=== PATIENT | male | born 1985 | race Caucasian/White ===

== ENCOUNTER 2021-09-13 12:26 | Emergency (ER) | payer MEDICAID, SELFPAY ==
[2021-09-13 12:28] VITALS: BP 106/85; PULSE 91; RESP 16; TEMP 36.7; O2SAT 100; BMI 32.4
--- NOTE | 2021-09-13 12:49 | CT_ITS ---
STUDY: CT CERVICAL SPINE WITHOUT CONTRAST REASON FOR EXAM: Male, 36 years old. Injury RADIATION DOSAGE (If Supplied By Facility): CTDIvol = ( 26.29 ) mGy, DLP = ( 573.70 ) mGycm TECHNIQUE: High resolution transaxial imaging was performed without contrast material. Sagittal and coronal images were reconstructed. Individualized dose optimization techniques were used for this CT. COMPARISON: None FINDINGS: Normal craniovertebral junction. Normal anterior atlantoaxial articulation. Normal odontoid process. There is straightening of the normal cervical lordosis. Normal vertebral bodies and posterior osseous elements. C2-3: Normal endplates. Normal disc height and morphology. Normal central canal and intervertebral neuroforamina. C3-4: Normal endplates. Normal disc height and morphology. Normal central canal and intervertebral neuroforamina. C4-5: Normal endplates. Normal disc height and morphology. Normal central canal and intervertebral neuroforamina. C5-6: There is a moderate degree of disc space narrowing at the C5-C6 level with spondylosis. C6-7: Moderate degree of disc space narrowing at the C6-C7 level with a posterior spondylosis. C7-T1: Normal endplates. Normal disc height and morphology. Normal central canal and intervertebral neuroforamina. Normal visualized soft tissue structures. CT/Spine Cervical without Contras IMPRESSION: Multilevel degenerative changes, as described above. Electronically Signed: Chandler Monique MD at 13:25 EDT , Service support ,
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
[2021-09-13] MEDS: Diphth,Pertuss(Acell),Tet Vac 0.5 ML Vial IM (13:28)
[2021-09-13 13:53] VITALS: BP 132/81; PULSE 76; RESP 12
== END 2021-09-13 13:54 | disposition home or self-care (01) ==
LOC: ED 13:22
PROVIDERS: Emergency Provider Emergency Medicine
DX: S01.111A Laceration without foreign body of right eyelid and periocular area, initial encounter (principal); F17.210 Nicotine dependence, cigarettes, uncomplicated; V89.2XXA Person injured in unspecified motor-vehicle accident, traffic, initial encounter; Y92.410 Unspecified street and highway as the place of occurrence of the external cause
CPT/HCPCS: 12011; 70450; 70486; 72125; 90471; 90715; 99285

== ENCOUNTER 2022-07-13 17:28 | Emergency (ER) | payer MEDICAID, SELFPAY ==
[2022-07-13 17:29] VITALS: BP 130/79; PULSE 103; RESP 15; TEMP 35.6; O2SAT 98; BMI 33.6
--- NOTE | 2022-07-13 17:52 | EDS_ITS ---
HPI History of Present Illness Chief Complaint: Lower Extremity Injury Detail of Chief Complaint: Bleeding varicose vein Informant: patient Narrative Narrative: Patient presents with bleeding from a varicosity on the inside of his right ank le. He states he was getting ready for work and putting his socks on. He scratched his ankle and a varicose vein started bleeding. He states he soaked through 4 towels at home. [facility] Medical History (Updated 07/13/22 @ 18:[address] Lo Peter MD) Depression Hepatitis C History of drug abuse Rheumatoid arthritis Home Medications cyclobenzaprine 5 mg tablet 5 mg PO BID PRN Pain 07/13/22 [History Last Taken Unknown] gabapentin 400 mg capsule 400 mg PO TID 07/13/22 [History Last Taken Unknown] ondansetron 4 mg disintegrating tablet 4 mg PO BID 07/13/22 [History Last Taken Unknown] pantoprazole 40 mg tablet,delayed release 40 mg PO DAILY 07/13/22 [History Last Taken Unknown] Allergy/AdvReac Type Severity Reaction Status Date / Time diphenhydramine Allergy Shortness Verified 07/13/22 17:29 [From Darlene] of breath Social History Smoking Status: Current every day smoker tobacco type: cigarettes substance use type: former substance user ROS ROS ED Constitutional Constitutional ED: Denies chills or fever(s) Eyes Eyes: Denies change in vision or discharge from eye(s) ENT ENT ED: Denies discharge from eye(s), rhinorrhea or sore throat Cardiovascular Cardiovascular: Denies chest pain or palpitations Respiratory/Chest Respiratory/Chest: Denies cough or dyspnea Gastrointestinal Gastrointestinal: Denies abdominal pain, nausea or vomiting Genitourinary Genitourinary ED: Denies dysuria Musculoskeletal Musculoskeletal: Denies back pain or extremity pain Integumentary Reports other Details: Bleeding varicose vein ; Denies Abrasions or rash Neurologic Neurologic: Denies headache(s) or weakness Allergic/Immunologic Allergic/Immunologic ED: Denies lip swelling or urticaria EXAM Physical Exam Const Vital Signs: 07/13/22 17:29 07/13/22 18:42 Temperature 96.0 F L Temperature Source Temporal Pulse Rate 103 H Respiratory Rate 15 16 Blood Pressure 130/79 H Blood Pressure Mean 96 Pulse Ox 98 Oxygen Delivery Method Room Air Room Air Positive well nourished and well developed General Appearance ED: well developed HEENT Reports normocephalic and head/scalp atraumatic Eyes PERRL and EOMs intact bilaterally Neck supple Chest Wall inspection of chest normal and palpation of chest normal Resp normal respiratory effort and clear to auscultation bilaterally Cardio regular rate and regular rhythm GI normal to inspection, nondistended, normoactive bowel sounds Palpation: soft Extremity Extremity Narrative: Small area of dried blood along the medial right ankle with a small minimally inflamed varicose vein. Bleeding is controlled at this time. Neuro oriented x3 and no sensory deficits noted Sensorium / Orientation: alert Motor Exam: strength 5/5 throughout Psych mental status grossly normal MDM MDM MDM Narrative Medical decision making narrative: Right leg is cleansed. Surgifoam and pressure dressing are placed across the medial ankle. Treatment and Re-Evaluation Narrative: Patient was observed. He is up ambulating in the emergency room without any further bleeding. Dressing is to remain in place for another day. Wound care discussed. Discharge Plan Triage Chief Complaint: Lower Extremity Injury ED Provider: Lo Peter Dx/Rx/DC Orders Clinical Impression: Varicose vein of leg Instructions: ED Varicose Veins Prescriptions: No Action gabapentin 400 mg capsule 400 mg PO TID Label Comments: TAKE 1 CAPSULE BY MOUTH THREE TIMES DAILY pantoprazole 40 mg tablet,delayed release (DR/EC) 40 mg PO DAILY Label Comments: TAKE 1 TABLET BY MOUTH ONCE DAILY ondansetron 4 mg tablet,disintegrating 4 mg PO BID Label Comments: DISSOLVE 1 TABLET IN MOUTH EVERY 12 HOURS cyclobenzaprine 5 mg tablet 5 mg PO BID PRN (Reason: Pain) Label Comments: TAKE 1 TABLET BY MOUTH TWICE DAILY NEEDED Primary Care Provider: Sreedhar Stockton Referrals: Sreedhar Stockton MD [Primary Care Provider] - As Needed Care Physician,No Primary [Non-Staff] - Disposition Disposition: Home, Self Care
[2022-07-13 18:42] VITALS: RESP 16
[2022-07-13 19:09] VITALS: PULSE 92; RESP 17; O2SAT 97
== END 2022-07-13 19:12 | disposition home or self-care (01) ==
PROVIDERS: Emergency Provider Emergency Medicine; PCP Internal Medicine; Visit Provider Emergency Medicine
DX: I83.90 Asymptomatic varicose veins of unspecified lower extremity (principal); F17.210 Nicotine dependence, cigarettes, uncomplicated; Z79.899 Other long term (current) drug therapy
CPT/HCPCS: 99282